=== PATIENT | male | born 1980 | race Caucasian/White ===

== ENCOUNTER 2016-12-22 22:31 | Emergency (ER) | payer MEDICARE, OTHER ==
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
[~2016-12-22 22:31] MED LIST: ALAVERT10 MG PO; AMOXICILLIN500 M1 PO; IBUPROFEN PO; IBUPROFEN800 MG PO; MOTRIN600 M1 PO; NAPROSYN500 MG PO; ULTRAM PO; VICODIN 5/1 TAB 5/50 PO; VICODIN 5/500 T1 TAB PO; VICODIN PO
== END 2016-12-23 01:16 | disposition home or self-care (01) ==
LOC: CED 22:31 → CFTX 22:31 → EDBD 23:50 → CFTX 12-23 01:16
DX: S60.221A Contusion of right hand, initial encounter (principal); S60.511A Abrasion of right hand, initial encounter; F17.200 Nicotine dependence, unspecified, uncomplicated; X58.XXXA Exposure to other specified factors, initial encounter; Y92.410 Unspecified street and highway as the place of occurrence of the external cause; Z23 Encounter for immunization
CPT/HCPCS: 73110; 73130; 90471; 90715; 99283